=== PATIENT | male | born 1960 | race Caucasian/White ===

== ENCOUNTER 2018-10-21 15:57 | Emergency (ER) | payer OTHER ==
[~2018-10-21] VITALS: Ht 182.9 cm; Wt 104.3 kg
[2018-10-21 18:57] VITALS: BP 131/85
== END 2018-10-21 19:00 | disposition home or self-care (01) ==
LOC: ER 15:57
DX: S90.822A Blister (nonthermal), left foot, initial encounter (principal); S90.821A Blister (nonthermal), right foot, initial encounter; S99.911A Unspecified injury of right ankle, initial encounter; M25.462 Effusion, left knee; E11.9 Type 2 diabetes mellitus without complications; I10 Essential (primary) hypertension; J45.909 Unspecified asthma, uncomplicated; F17.200 Nicotine dependence, unspecified, uncomplicated; X58.XXXA Exposure to other specified factors, initial encounter; Y93.01 Activity, walking, marching and hiking; Y92.89 Other specified places as the place of occurrence of the external cause; Y99.8 Other external cause status

== ENCOUNTER 2020-05-11 09:58 | Emergency (ER) | payer OTHER ==
[~2020-05-11] VITALS: Ht 182.9 cm; Wt 127.0 kg
[2020-05-11 10:49] LABS: ABSOLUTE NEUTROPHILS 3.9 thou/uL (1.4-8.2); BASOPHILS 0.7 % (0.0-2.0); EOSINOPHILS 2.3 % (0.0-3.0); HEMOGLOBIN 13.2 gm/dL (14.0-18.0); LYMPHOCYTES 22.1 % (24.0-44.0); MCH 29.9 pg (26.0-34.0); MCHC 33.8 g/dL (28.0-37.0); MCV 88.5 fL (80.0-100.0); MONOCYTES 10.1 % (1.0-8.0); PLATELET COUNT 271 thou/uL (150-400); POLYS 64.8 % (36.0-66.0); RDW 14.5 % (10.5-14.5)
[2020-05-11 10:58] LABS: CREATININE 1.3 mg/dL (0.7-1.3); MAGNESIUM 2.6 mg/dL (1.8-2.4); POTASSIUM 3.1 mmol/L (3.5-5.1)
[2020-05-11 11:13] LABS: CALCIUM 8.2 mg/dL (8.5-10.1)
[2020-05-11 13:23] VITALS: BP 139/67
--- NOTE | 2020-05-11 14:31 | EKG ---
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
== END 2020-05-11 13:23 | disposition home or self-care (01) ==
LOC: ER 09:58
PROVIDERS: Emergency Medicine
DX: R53.1 Weakness (principal); R42 Dizziness and giddiness; F17.210 Nicotine dependence, cigarettes, uncomplicated; E11.9 Type 2 diabetes mellitus without complications